=== PATIENT | female | born 1955 | race Caucasian/White ===

== ENCOUNTER 2017-07-12 09:23 | Day surgery (SDC) | payer BC ==
[~2017-07-12] VITALS: Ht 162.6 cm; Wt 59.0 kg
--- NOTE | ~2017-07-12 | OP ---
Record Of Operation [facility] [address] [place]. [address] NAME: LINETTE SWAIN : 57 STATUS : REG [facility] PAT#: [id number] AGE: 62 ADM/REG DATE : 07/12/17 MR#: [id number] REPORT SERV DATE: 07/12/17 DICTATED BY: FABRICIO KRAMER DATE: 07/12/17 REPORT STATUS : Draft TRANSCRIBED BY: MODSimin DATE: 07/12/17 DATE OF PROCEDURE: 07/12/2017 PREOPERATIVE DIAGNOSIS: Right wrist fracture, 06/20/2017, with loss of reduction. POSTOPERATIVE DIAGNOSIS: Right wrist fracture, 06/20/2017, with loss of reduction. PROCEDURE: Open reduction and internal fixation with Acumed system. ANESTHESIA: General with regional. ESTIMATED BLOOD LOSS: Less than 1 mL. COMPLICATIONS: None. DISPOSITION: The patient tolerated the procedure well and was brought to recovery room in stable condition. PROCEDURE NOTE: The patient brought to the operating room and placed in supine position. After general anesthesia was administered, a pneumatic tourniquet was placed around the right proximal arm of the right upper extremity. It was prepped and draped in usual sterile manner. A regional block was already administered in the preop holding area, and a time-out was performed and all were in agreement. Afterwards an Esmarch was used to exsanguinate the extremity and the tourniquet was inflated. A 15 blade scalpel was used to make a 10-12 cm longitudinal incision starting at the volar wrist crease and directed proximally. The incision was directly overlying the FCR tendon, and after the skin was incised, the FCR tendon was identified and moved radially and the superficial fascia of the arm was incised directly in the pathway of the FCR tendon. Blunt finger dissection was brought down to the pronator quadratus muscle. This was released off the most radial aspect of the radius to reveal the fracture site. An osteotome was then put into the fracture site and then used to lift the fracture back into place. Position was checked under fluoroscopy and a volar plate was then applied onto the volar wrist and two 3.5 mm nonlocking screws and three distal 2.3 mm locking screws were placed to provide excellent fixation. There was good alignment of the fracture and good stability of the fracture. The wound was irrigated and the skin was closed with deep and running Vicryl and Monocryl respectively. Steri-Strips and sterile dressing and a volar splint was applied. Tourniquet was released and the patient was taken out of general anesthesia. Arm was placed in a sling and patient was brought to recovery room in stable condition. IVETTE/HENRI Fabricio Kramer M.D. Record Of [address] [address] NAME: LNIETTE SWAIN : 57 STATUS : REG [facility] PAT#: [id number] AGE: 62 ADM/REG DATE : 07/12/17 MR#: [id number] REPORT SERV DATE: 07/12/17 DICTATED BY: FABRICIO KRAMER DATE: 07/12/17 REPORT STATUS : Draft TRANSCRIBED BY: HENRI DATE: 07/12/17 / [id number] CC: Fabricio Kramer M.D.
[~2017-07-12 09:23] MED LIST: EXCEDRIN EXTRA1 EACH PO
[2017-07-12 10:35] LABS: HEMATOCRIT 36.6 % (36.0-48.0)
== END 2017-07-12 14:46 | disposition home or self-care (01) ==
LOC: SDC 09:23
PROVIDERS: Orthopaedic Surgery Hand Surgery
PROC: 0PSH04Z Reposition Right Radius with Internal Fixation Device, Open Approach (ICD-10-PCS; principal; 2017-07-12 14:15)
DX: S62.101A Fracture of unspecified carpal bone, right wrist, initial encounter for closed fracture (principal); G90.1 Familial dysautonomia [Riley-Day]; Z88.8 Allergy status to other drugs, medicaments and biological substances; Z98.51 Tubal ligation status; Z98.890 Other specified postprocedural states; X58.XXXA Exposure to other specified factors, initial encounter
CPT/HCPCS: 76000; 85014; 85018; 93005; A9270-GY; C1713; J0690; J2250; J2405; J2795; J3010